=== PATIENT | female | born 1950 | race Native Hawaiian/Other Pacific Islander ===

== ENCOUNTER 2017-02-12 07:34 | Emergency (ER) | payer OTHER, BC ==
[~2017-02-12] VITALS: Ht 162.6 cm; Wt 77.1 kg
[~2017-02-12 07:34] MED LIST: ASCO500T18 PO; CALCIUM +D PO; ESTRACE VAGINAL CREA VAG; FLAXSEED OIL1000 M1 PO; MULTIVITAMIN PO; VITAMIN D31000 UNI1 PO
[2017-02-12 07:38] VITALS: BP 145/87; TEMP 98.3
== END 2017-02-12 07:47 | disposition home or self-care (01) ==
LOC: ED 07:34
DX: Z48.02 Encounter for removal of sutures (principal)

== ENCOUNTER 2017-02-26 07:35 | Outpatient (CLI) | payer OTHER, BC ==
[2017-02-26 08:17] LABS: PLATELET COUNT 248 K/uL (152-353)
== END 2017-02-26 19:29 | disposition home or self-care (01) ==
LOC: LABW 07:35
PROVIDERS: Physician Assistant
DX: Z00.00 Encounter for general adult medical examination without abnormal findings (principal); Z79.899 Other long term (current) drug therapy; Z13.220 Encounter for screening for lipoid disorders; Z78.0 Asymptomatic menopausal state; M54.5 Low back pain; Z51.81 Encounter for therapeutic drug level monitoring
CPT/HCPCS: 36415; 80053; 80061; 84439; 84443; 85027

== ENCOUNTER 2017-06-26 08:20 | Outpatient (CLI) | payer OTHER, BC | END 2017-06-26 18:00 | disposition home or self-care (01) | LOC: LABW 08:20 | DX: E55.9 Vitamin D deficiency, unspecified (principal) | CPT/HCPCS: 36415; 82306 ==

== ENCOUNTER 2018-02-19 08:19 | Outpatient (CLI) | payer OTHER, BC ==
[2018-02-19 09:05] LABS: PLATELET COUNT 220 K/uL (152-353)
[2018-02-19 09:51] LABS: POTASSIUM 4.4 mmol/L (3.6-5.2)
== END 2018-02-19 19:57 | disposition home or self-care (01) ==
LOC: LABW 08:19
PROVIDERS: Internal Medicine
DX: E03.9 Hypothyroidism, unspecified (principal)
CPT/HCPCS: 36415; 80053; 80061; 81000; 82306; 84439; 84443; 85027

== ENCOUNTER 2018-11-12 07:17 | Outpatient (CLI) | payer OTHER, BC ==
[2018-11-12 07:49] LABS: PLATELET COUNT 210 K/uL (152-353)
[2018-11-12 08:10] LABS: POTASSIUM 4.2 mmol/L (3.6-5.2)
== END 2018-11-12 19:28 | disposition home or self-care (01) ==
LOC: LABW 07:17
PROVIDERS: Internal Medicine Gastroenterology
DX: K76.89 Other specified diseases of liver (principal); R93.3 Abnormal findings on diagnostic imaging of other parts of digestive tract
CPT/HCPCS: 36415; 80053; 85027; 85610

== ENCOUNTER 2020-01-27 10:05 | Outpatient (CLI) | payer OTHER, BC ==
[2020-01-27 10:21] LABS: PLATELET COUNT 248 K/uL (152-353)
[2020-01-27 10:39] LABS: POTASSIUM 4.5 mmol/L (3.6-5.2)
== END 2020-01-27 19:06 | disposition home or self-care (01) ==
LOC: LABW 10:05
PROVIDERS: Internal Medicine
DX: Z00.00 Encounter for general adult medical examination without abnormal findings (principal); E03.8 Other specified hypothyroidism; Z13.820 Encounter for screening for osteoporosis; E55.9 Vitamin D deficiency, unspecified
CPT/HCPCS: 36415; 80053; 80061; 81000; 82306; 84439; 84443; 85027

== ENCOUNTER 2020-09-22 16:54 | Outpatient (CLI) | payer BC | END 2020-09-22 22:25 | disposition home or self-care (01) | LOC: RAD 16:54 | PROVIDERS: ATTEND Internal Medicine | DX: S60.861A Insect bite (nonvenomous) of right wrist, initial encounter (principal); M79.604 Pain in right leg ==

== ENCOUNTER 2020-09-23 08:19 | Outpatient (CLI) | payer BC | END 2020-09-23 21:46 | disposition home or self-care (01) | LOC: US 08:19 | PROVIDERS: ATTEND Internal Medicine | DX: M79.604 Pain in right leg (principal) ==

== ENCOUNTER 2021-06-08 13:48 | Outpatient (CLI) | payer BC ==
[2021-06-08 14:12] LABS: PLATELET COUNT 227 K/uL (152-353)
== END 2021-06-08 20:29 | disposition home or self-care (01) ==
LOC: RAD 13:48
PROVIDERS: ATTEND Internal Medicine
DX: M25.531 Pain in right wrist (principal)
CPT/HCPCS: 36415; 84550; 85027; 85652

== ENCOUNTER 2022-06-05 09:58 | Outpatient (CLI) | payer BC | END 2022-06-05 19:36 | disposition home or self-care (01) | LOC: RAD 09:58 | PROVIDERS: ATTEND Internal Medicine | DX: J40 Bronchitis, not specified as acute or chronic (principal) ==